=== PATIENT | male | born 1990 | race American Indian/Alaskan Native ===

== ENCOUNTER 2017-03-07 09:27 | Emergency (ER) | payer SELFPAY ==
[2017-03-07 09:56] VITALS: BP 108/52
--- NOTE | 2017-03-07 09:57 | Emergency Department Report ---
Chief Complaint: Extremity Injury, Lower Stated Complaint: RIGHT FOOT SWOLLEN Time Seen by Provider: 03/07/17 09:54 - HPI History of Present Illness: pt c/o R foot pain x 2 weeks. 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 Due to findings the following was ordered: xr ED Disposition for MSE Condition: Stable
--- NOTE | 2017-03-07 10:56 | XRay Report ---
RIGHT FOOT RADIOGRAPHS INDICATION: Pain for 2 weeks. COMPARISON: None similar at this institution. FINDINGS: AP, lateral and oblique views of the right foot demonstrate intact bones and joints. Slight diffuse dorsal soft tissue prominence or swelling not entirely excluded. CONCLUSION: No acute right foot bony abnormality with questionable dorsal soft tissue swelling. Please correlate. Thank you for the opportunity to participate in this patient's care.
[2017-03-07] MEDS ORDERED: MOTRIN PO ONE (11:25)
--- NOTE | 2017-03-07 21:42 | Emergency Department Report ---
Entered by SHAYLA NAQVI, acting as scribe for NICOLE FAYE NP. ED Lower Extremity HPI - General Chief Complaint: Extremity Injury, Lower Stated Complaint: RIGHT FOOT SWOLLEN Time Seen by Provider: 03/07/17 09:54 Source: patient Mode of arrival: Ambulatory Limitations: No Limitations - History of Present Illness Initial Comments: This is a 26 y/o male with no significant PMHx presents to the ED right foot swelling that began yesterday. Patient states his swelling may be due to kicking heavy boxing regularly at work with his right foot. Associated right foot pain x 2 days, but he denies fever, chills, chest pain, SOB, ARMSTRONG or dizziness, numbness, tingling. Rates right foot pain an 8/10 in severity, which he describes as aching in quality. Aggravated with palpation, weight bearing, and movement, and alleviated with immobilization. Patient stated has normal gait. Denies taking medication for his pain or swelling. NKDA. BAKER Complaint: foot injury Onset/Timin -: days(s) Injury: Foot: Right (dorsal aspect) Type of Injury: blunt Place: work Severity: severe Severity scale (0 -10): 8 Improves With: immobilization Worsens With: weight bearing, movement, palpation Context: other (kicking heavy boxes at work) Associated Symptoms: swelling (dorsal aspect of right foot), able to partially bear weight, ambulatory (limping gait). denies: snap/pop sensation, numbness, tingling - Related Data Previous Rx's Medication Instructions Recorded Last Taken Type Ibuprofen [Motrin 600 MG tab] 600 mg PO Q8H PRN #30 tablet 03/07/17 Unknown Rx predniSONE [Deltasone] 20 mg PO BID #10 tab 03/07/17 Unknown Rx Allergies Allergy/AdvReac Type Severity Reaction Status Date / Time No Known Allergies Allergy Verified 03/07/17 09:56 ED Review of Systems Comment: All other systems reviewed and negative Constitutional: denies: chills, fever Eyes: denies: eye pain, eye discharge, vision change ENT: denies: ear pain, throat pain Respiratory: denies: cough, shortness of breath, wheezing Cardiovascular: denies: chest pain, palpitations Endocrine: no symptoms reported Gastrointestinal: denies: abdominal pain, nausea, vomiting, diarrhea Genitourinary: denies: urgency, dysuria Musculoskeletal: joint swelling (right foot swelling), arthralgia (right foot pain). denies: back pain Skin: denies: rash, lesions Neurological: denies: headache, weakness, numbness, paresthesias Psychiatric: denies: anxiety, depression Hematological/Lymphatic: denies: easy bleeding, easy bruising ED Past Medical Hx - Past Medical History Previous Medical History?: No - Surgical History Past Surgical History?: No - Family History Family history: no significant - Social History Smoking Status: Never Smoker Substance Use Type: None - Medications Home Medications: Home Medications Medication Instructions Recorded Confirmed Last Taken Type Ibuprofen [Motrin 600 MG tab] 600 mg PO Q8H PRN #30 tablet 03/07/17 Unknown Rx predniSONE [Deltasone] 20 mg PO BID #10 tab 03/07/17 Unknown Rx ED Physical Exam - General Limitations: No Limitations General appearance: alert, in no apparent distress - Head Head exam: Present: atraumatic, normocephalic - Eye Eye exam: Present: normal appearance, PERRL, EOMI Pupils: Present: normal accommodation - ENT ENT exam: Present: normal exam, normal orophraynx, mucous membranes moist, TM's normal bilaterally, normal external ear exam - Neck Neck exam: Present: normal inspection, full ROM. Absent: tenderness, meningismus, lymphadenopathy - Respiratory Respiratory exam: Present: normal lung sounds bilaterally. Absent: respiratory distress, wheezes, rales, rhonchi, stridor, chest wall tenderness, accessory muscle use, decreased breath sounds - Cardiovascular Cardiovascular Exam: Present: regular rate, normal rhythm, normal heart sounds. Absent: systolic murmur, diastolic murmur, rubs, gallop - GI/Abdominal GI/Abdominal exam: Present: soft, normal bowel sounds. Absent: distended - Rectal Rectal exam: Present: deferred - Extremities Exam Extremities exam: Present: full ROM (limited dorsiflexion and plantar flexion due to right foot pain), normal capillary refill. Absent: tenderness, pedal edema, joint swelling, calf tenderness - Expanded Lower Extremity Exam Right Hip exam: Present: normal inspection, full ROM, external rotation, internal rotation, pelvic stability. Absent: tenderness, swelling, abrasion, laceration , ecchymosis, deformity, crepidus, erythema, shortening Upper Leg exam: Present: normal inspection, full ROM. Absent: tenderness, swelling, abrasion, laceration, ecchymosis, deformity, crepidus, dislocation, erythema Knee exam: Present: normal inspection, full ROM, full knee extension. Absent: tenderness, swelling, abrasion, laceration, ecchymosis, deformity, crepidus, dislocation, erythema, effusion, pain w/ pronation/supination, posterior draw sign, pain/laxity with valgus, pain/laxity with varus Lower Leg exam: Present: normal inspection, full ROM. Absent: tenderness, swelling, abrasion, laceration, ecchymosis, deformity, crepidus, dislocation, erythema, palpable cord, Debbie's sign Ankle exam: Present: normal inspection, full ROM. Absent: tenderness, swelling , abrasion, laceration, ecchymosis, deformity, crepidus, dislocation, erythema, anterior draw sign Foot/Toe exam: Present: full ROM (limited dorsiflexion and plantar flexion due to right foot pain), tenderness (right dorsal forefoot), swelling (right dorsal forefoot). Absent: normal inspection, abrasion, laceration, ecchymosis, deformity, crepidus, dislocation, erythema, amputation, puncture wound, foreign body, calcaneal tenderness, tenderness at base of 5th metatarsal, nail avulsion , subungual hematoma Neuro vascular tendon exam: Present: no vascular compromise. Absent: pulse deficit, abnormal cap refill, motor deficit, sensory deficit, tendon deficit, extremity cold to touch, pallor, abnormal 2-point discrimination, decreased fine /light touch, foot drop, peroneal nerve deficit, significant pain with passive ROM of distal joint Gait: Positive: observed and limited by pain - Back Exam Back exam: Present: normal inspection, full ROM. Absent: tenderness, CVA tenderness (R), CVA tenderness (L), muscle spasm, paraspinal tenderness, vertebral tenderness, rash noted - Neurological Exam Neurological exam: Present: alert, oriented X3, CN II-XII intact, normal gait, reflexes normal. Absent: motor sensory deficit - Psychiatric Psychiatric exam: Present: normal affect, normal mood - Skin Skin exam: Present: warm, dry, intact. Absent: rash, cyanosis, abrasion, ecchymosis ED Course Vital Signs 03/07/17 09:53 Temperature 98.2 F Pulse Rate 60 Respiratory 18 Rate Blood Pressure 108/52 O2 Sat by Pulse 99 Oximetry - Reevaluation(s) Reevaluation #1: 03/07/17 12:18 Patient is speaking in full sentences with no signs of distress noted. ED Lower Extremity MDM - Medical Decision Making 26-year-old presents with right foot swelling. Exam is consistent with contusion with no joint swelling or joint rednes. No surrounding cellulitis noted. Normal ROM. Normal gait. Xray has been obtained with normal findings. Dictated by radiologist. Pt was notified of xray findings with no further questions. Pt received Motrin in the ed. Patient was notified to follow-up with primary care doctor/orthopedic in 3-5 days or if symptoms worsen and continue to return to the emergency as soon as possible. At the time of d/c, pt does not seem toxic or ill in appearance. pt agrees to the plan of care. pt ws instructed to rest, elevate and ice extremity. pt received shannon wrap. ED Disposition Clinical Impression: Contusion Qualifiers: Encounter type: initial encounter Contusion area: foot Laterality: right Qualified Code(s): S90.31XA - Contusion of right foot, initial encounter Right foot strain Qualifiers: Encounter type: initial encounter Qualified Code(s): S96.911A - Strain of unspecified muscle and tendon at ankle and foot level, right foot, initial encounter Disposition: TO HOME OR SELFCARE Is pt being admited?: No Does the pt Need Aspirin: No Condition: Stable Instructions: Foot Contusion (ED), Ibuprofen (By mouth), Prednisone (By mouth) , RICE Therapy (ED) Additional Instructions: Follow-up with primary care doctor/orthopedic in 3-5 days or if symptoms worsen and continue to return to the emergency as soon as possible. Rest, elevate, and ice extremity. Prescriptions: Ibuprofen [Motrin 600 MG tab] 600 mg PO Q8H PRN #30 tablet PRN Reason: Pain predniSONE [Deltasone] 20 mg PO BID #10 tab Referrals: PRIMARY MD SHERIF [Primary Care Provider] - 3-5 Days ZACKARY TRISTAN MD [Staff Physician] - 3-5 Days [facility] [Outside] - 3-5 Days [facility] [Outside] - 3-5 Days Forms: Work/School Release Form(ED) This documentation as recorded by the DRISS estrada JASMINE,accurately reflects the service I personally performed and the decisions made by me,NICOLE FAYE, SARAI.
== END 2017-03-07 12:46 | disposition home or self-care (01) ==
LOC: ED 09:27
DX: S90.31XA Contusion of right foot, initial encounter (principal); S96.911A Strain of unspecified muscle and tendon at ankle and foot level, right foot, initial encounter; X50.9XXA Other and unspecified overexertion or strenuous movements or postures, initial encounter; Y93.89 Activity, other specified; Y92.89 Other specified places as the place of occurrence of the external cause; Y99.8 Other external cause status
CPT/HCPCS: 99283